=== PATIENT | female | born 1965 | race Caucasian/White ===

== ENCOUNTER 2016-08-02 11:59 | Outpatient (RCR) | payer OTHER ==
--- OUTSIDE RECORDS SUMMARY | 2016-08-02 12:16 | XMS REPORT | Continuity of Care Document ---
Author Author [facility] Organization [facility] Address Unknown Phone Unavailable Care Team Providers Care Lead Miner Blasting Name Role Phone Anita Gauthier III PCP [phone] Source Comments Some departments are not documenting in the electronic medical record. If you do not see the information that you expected, contact Release of Information in the Health Information Management department at [phone] for further assistance in locating additional records.[facility] Active Allergies and Adverse Reactions No Known [...] hours as needed for 15 Cramps. PEG 5893-Rkdeoafxqpls-Lcb Take as directed. 1 Each 0 07/03/19 [...] Taken Blood Pressure 106/77 07/22/2014 3:57 PM JOB ORDER CLERK Pulse 69 07/22/2014 3:57 PM JOB ORDER CLERK Temperature 36.8 C (98.2 F) 07/22/2014 2:03 PM JOB ORDER CLERK Respiratory Rate 16 07/16/2014 7:56 AM JOB ORDER CLERK Height 1.702 m (5' 7") 07/22/2014 2:03 PM JOB ORDER CLERK Weight 61.236 kg (135 lb) 07/22/2014 2:03 PM JOB ORDER CLERK Body Mass Index 21.14 07/22/2014 2:03 PM JOB ORDER CLERK Oxygen Saturation 100% 07/22/2014 3:57 PM JOB ORDER CLERK Plan of Care Health Maintenance Due Date Last Done Comments Physical (Comprehensive) 12/19/1970 Exam Pertussis Vaccine 12/19/1974 Tetanus Vaccine 12/19/1980 Cervical Cancer Screening 12/19/1984 Breast Cancer Screening 2003 Influenza Vaccine 02/25/2016 Colorectal Cancer 07/11/2024 07/11/2014 Screening Results from Last 3 Months Not on file
[2016-08-02 13:12] LABS: BASOPHILS % (AUTO) 0 % (0-10); EOSINOPHILS % (AUTO) 0 % (0-10); LYMPHOCYTES # (AUTO) 1.5 X 10^3 (1.0-4.0); LYMPHOCYTES % (AUTO) 12 % (12-44); MEAN CORPUSCULAR HEMOGLOBIN 30 PG (25-34); MEAN CORPUSCULAR HGB CONC 33 G/DL (32-36); MEAN CORPUSCULAR VOLUME 89 FL (80-99); MONOCYTES # (AUTO) 0.3 X 10^3 (0.0-1.0); MONOCYTES % (AUTO) 2 % (0-12); NEUTROPHILS # (AUTO) 10.5 X 10^3 (1.8-7.8); NEUTROPHILS % (AUTO) 85 % (42-75); PLATELET COUNT 338 10^3/uL (130-400); RED CELL DISTRIBUTION WIDTH 13.8 % (10.0-14.5); WHITE BLOOD COUNT 12.3 10^3/uL (4.3-11.0)
[2016-08-02 13:47] LABS: ALANINE AMINOTRANSFERASE 39 U/L (0-55); ALBUMIN 4.3 G/DL (3.2-4.5); ANION GAP 7 MMOL/L (5-14); ASPARTATE AMINO TRANSFERASE 20 U/L (5-34); BILIRUBIN,TOTAL 0.7 MG/DL (0.1-1.0); BLOOD UREA NITROGEN 19 MG/DL (7-18); BUN/CREATININE RATIO 23; CALCIUM 9.2 MG/DL (8.5-10.1); CARBON DIOXIDE 30 MMOL/L (21-32); CHLORIDE 103 MMOL/L (98-107); CREATININE SERUM 0.81 MG/DL (0.60-1.30); GFR ESTIMATED > 60; GLUCOSE 136 MG/DL (70-105); POTASSIUM 4.9 MMOL/L (3.6-5.0); SODIUM 140 MMOL/L (135-145); TOTAL PROTEIN 6.4 G/DL (6.4-8.2)
[2016-08-03 04:10] LABS: IMMUNOGLOBULIN IGA 150 mg/dL (71-263); IMMUNOGLOBULIN IGG 645 mg/dL (672-1680)
[2016-08-03 06:49] LABS: IMMUNOGLOBULIN IGM 96 mg/dL (47-209)
== END 2016-10-31 | disposition home or self-care (01) ==
LOC: ONC 11:59
PROVIDERS: ATTEND Internal Medicine Hematology & Oncology
DX: R76.8 Other specified abnormal immunological findings in serum (principal)
CPT/HCPCS: 36415; 80053; 82784; 85025; 99214

== ENCOUNTER → 2016-08-02 | Outpatient (CLI) | payer OTHER ==
[~2016-08-02] MED LIST: ASP81CT; FENO135C PO; FENO145T; HYOS0.1217 PO; LOVAZA; METO-354 PO; NAPR-243 PO; NF-ESOM40C; OMEP-10 PO; ONDAN4ODT PO; ORPH100T PO; ROSU20TA14; SCR1T PO; TRM50T PO; crestor; lovaza
--- OUTSIDE RECORDS SUMMARY | 2016-08-02 11:36 | XMS REPORT | Continuity of Care Document ---
Author Author [facility] Organization [facility] Address Unknown Phone Unavailable Care Team Providers Care Jig Filler Name Role Phone Anita Gauthier III PCP [phone] Source Comments Some departments are not documenting in the electronic medical record. If you do not see the information that you expected, contact Release of Information in the Health Information Management department at [phone] for further assistance in locating additional records.[facility] Active Allergies and Adverse Reactions No Known Allergies Current Medications Prescription Sig. Disp. Refills Start End Date Status Date metFORMIN (GLUCOPHAGE) Take 500 mg by mouth Active 500 mg tablet daily. pantoprazole DR Take 1 Tab by mouth twice 180 Tab 3 04/30/20 Active (PROTONIX) 40 mg tablet daily. 13 allopurinol (ZYLOPRIM) Take 50 mg by mouth Active 100 mg tablet daily. atorvastatin (LIPITOR) 40 Take 80 mg by mouth Active mg tablet daily. fish oil /omega-3 fatty Take 1 Cap by mouth twice Active acids (SEA-OMEGA) daily. 340/1000 mg capsule ergocalciferol (VITAMIN Take 50,000 Units by Active D-2) 50,000 unit capsule mouth every [address] Take 1 Tab by mouth twice 60 Tab 5 07/03/19 Active (PROTONIX) 40 mg tablet daily. 15 hyoscyamine (LEVSIN) Take 1 Tab by mouth every 90 Tab 2 07/03/19 Active 0.125 mg tablet 6 hours as needed for 15 Cramps. PEG 5961-Ukxfczobylau-Liw Take as directed. 1 Each 0 07/03/19 Active C (MOVIPREP) 15 100-7.5-2.691 gram pwpk psyllium (METAMUCIL) Take 1 Packet by mouth 60 Packet 1 07/16/19 Active packet twice daily. 15 loperamide (IMODIUM) 2 mg Take 1 Cap by mouth four 90 Cap 2 07/16/19 Active capsule times daily as needed for 15 Diarrhea. Active Problems Problem Noted Date Bloating 07/03/2014 Diarrhea 07/03/2014 S/P Esperanza fundoplication (without gastrostomy tube) procedure 08/06/2013 GERD (gastroesophageal reflux disease) 05/16/2013 Hiatal hernia 05/16/2013 Social History Tobacco Use Types Packs/Day Years Used Date Never Smoker Smokeless Tobacco: Never Used Alcohol Use Drinks/Week oz/Week Comments No Last Filed Vital Signs Vital Sign Reading Time Taken Blood Pressure 106/77 07/22/2014 3:57 PM CLINICAL DOCUMENTATION IMPROVEMENT SPECIALIST Pulse 69 07/22/2014 3:57 PM CLINICAL DOCUMENTATION IMPROVEMENT SPECIALIST Temperature 36.8 C (98.2 F) 07/22/2014 2:03 PM CLINICAL DOCUMENTATION IMPROVEMENT SPECIALIST Respiratory Rate 16 07/16/2014 7:56 AM CLINICAL DOCUMENTATION IMPROVEMENT SPECIALIST Height 1.702 m (5' 7") 07/22/2014 2:03 PM CLINICAL DOCUMENTATION IMPROVEMENT SPECIALIST Weight 61.236 kg (135 lb) 07/22/2014 2:03 PM CLINICAL DOCUMENTATION IMPROVEMENT SPECIALIST Body Mass Index 21.14 07/22/2014 2:03 PM CLINICAL DOCUMENTATION IMPROVEMENT SPECIALIST Oxygen Saturation 100% 07/22/2014 3:57 PM CLINICAL DOCUMENTATION IMPROVEMENT SPECIALIST Plan of Care Health Maintenance Due Date Last Done Comments Physical (Comprehensive) 12/19/1970 Exam Pertussis Vaccine 12/19/1974 Tetanus Vaccine 12/19/1980 Cervical Cancer Screening 12/19/1984 Breast Cancer Screening 2003 Influenza Vaccine 02/25/2016 Colorectal Cancer 07/11/2024 07/11/2014 Screening Results from Last 3 Months Not on file
--- NOTE | 2016-08-02 13:32 | Diagnostic Imaging Report ---
EXAMINATION: Three views of the right knee. INDICATION: Right knee pain. FINDINGS: There is no fracture, dislocation, or radiopaque foreign body. No suprapatellar effusion is seen. IMPRESSION: Unremarkable exam. Dictated by: Dictated on workstation # [id number]
--- NOTE | 2016-08-02 15:32 | Diagnostic Imaging Report ---
PA and lateral views of the chest Indication: Cough Findings: The lungs are clear. The heart size is normal. There is no effusion or pneumothorax The mediastinum and violeta appear unremarkable. Impression: Unremarkable study. Dictated by: Dictated on workstation # [id number]
== END ==
LOC: RAD 11:29
PROVIDERS: ATTEND Nurse Practitioner Family
DX: M25.561 Pain in right knee (principal); R05 Cough
CPT/HCPCS: 71020; 73562

== ENCOUNTER → 2019-05-15 | Outpatient (CLI) | payer OTHER ==
--- NOTE | 2019-05-15 10:02 | Diagnostic Imaging Report ---
INDICATION: Left lower quadrant pain for six months. FINDINGS: The liver is normal in size at 15.4 cm. No discrete liver mass is identified. Portal vein is patent and shows normal direction of flow. Gallbladder is surgically absent. No biliary ductal dilatation is seen. Spleen is normal in size at 10.2 cm. Aorta is nonaneurysmal. IVC is patent. Both the right and left kidneys are without calculi or hydronephrosis. There is no ascites. IMPRESSION: Status post cholecystectomy. No significant abnormality is detected. Dictated by: Dictated on workstation # [id number]
--- NOTE | 2019-05-15 10:14 | Diagnostic Imaging Report ---
EXAM: CHEST PA/LAT (2 VIEWS) INDICATION: Abdominal pain. COMPARISON: 08/02/2016. FINDINGS: Normal heart size and pulmonary vascularity. No dense consolidation, pleural effusion or pneumothorax. No acute osseous findings. No significant change. IMPRESSION: Negative chest. Dictated by: Dictated on workstation # [id number]
--- NOTE | 2019-05-15 10:27 | Diagnostic Imaging Report ---
INDICATION: Left-sided abdominal pain. TIME OF EXAMINATION: 9:51 AM. TECHNIQUE: Multiple views of the abdomen were obtained. FINDINGS: No free air is identified. There are surgical clips in the gallbladder fossa. The bowel gas pattern is nonobstructed. No pathologic calcifications are seen. IMPRESSION: No acute abnormality is detected. Dictated by: Dictated on workstation # [id number]
== END ==
LOC: RAD 08:58
PROVIDERS: ATTEND Family Medicine
DX: R10.32 Left lower quadrant pain (principal); Z90.49 Acquired absence of other specified parts of digestive tract
CPT/HCPCS: 71046; 74019; 76700

== ENCOUNTER → 2020-11-16 | Outpatient (CLI) | payer OTHER | LOC: CARD 09:45 | PROVIDERS: ATTEND Family Medicine | DX: R07.89 Other chest pain (principal) | CPT/HCPCS: 93005 ==